=== PATIENT | male | born 1970 | race Caucasian/White ===

== ENCOUNTER 2017-08-17 02:38 | Inpatient (IN) | payer BC ==
[~2017-08-17] VITALS: Ht 177.8 cm; Wt 90.7 kg
[~2017-08-17 02:38] MED LIST: LEVAQUIN500 MG ORAL; METRONIDAZOLE500 MG ORAL; NEXIUM20 MG ORAL; ZOFRAN ODT4 MG ORAL
[2017-08-17] MEDS ORDERED: NKM (02:56)
--- NOTE | 2017-08-17 03:06 | Emergency Room Report ---
History of Present Illness General Chief Complaint: Nausea Source: Patient Present Illness HPI Is a 47-year-old male with no past medical history. He present with chief complaint of 3 and nausea. Onset tonight. Today he had cough congestion and sore throat. He was getting better. He had a fever tonight. Took 2 Advil. Local from severely nauseous. Was sweating. No no vomiting. Similar symptom in the past. Allergies: Coded Allergies: PENICILLINS (Unverified Allergy, Unknown, hives, 02/18/14) Patient History Past Medical History: see triage record, old chart reviewed Past Surgical History: none Pertinent Family History: none Social History: Denies: smoking Immunizations: other Reviewed Nursing Documentation: PMH: Agreed, PSxH: Agreed Nursing Documentation-PMH Past Medical History: No History, Except For Hx Hypertension: Yes Review of Systems Constitutional: Reports: sweats, fever Eye: Denies: eye pain, blurred vision ENT: Reports: throat pain, Denies: ear pain, nose congestion Respiratory: Denies: cough, shortness of breath Cardiovascular: Denies: chest pain, palpitations Gastrointestinal: Reports: nausea, Denies: abdominal pain, diarrhea, vomiting Musculoskeletal: Denies: back pain, joint pain Skin: Denies: rash Neurological: Denies: headache, numbness Endocrine: Denies: increased thirst, increased urine Hematologic/Lymphatic: Denies: easy bruising All Other Systems: negative except mentioned in HPI Physical Exam Vital Signs Date Time Temp Pulse Resp B/P (MAP) Pulse Ox O2 Delivery O2 Flow Rate FiO2 08/17/17 02:53 99.1 104 20 139/104 97 Room Air vitals unremarkable Sp02 EP Interpretation: reviewed, normal General Appearance: well appearing, no apparent distress, alert Head: normocephalic, atraumatic Eyes: bilateral eye PERRL, bilateral eye EOMI ENT: hearing grossly normal, normal pharynx Neck: full range of motion, supple, no meningismus Respiratory: chest non-tender, lungs clear, normal breath sounds Cardiovascular #1: regular rate, rhythm, no murmur Gastrointestinal: normal bowel sounds, non tender, no mass, no organomegaly, no bruit, non-distended Musculoskeletal: back normal, gait/station normal, normal range of motion Psychiatric: mood/affect normal Skin: diaphoresis Medical Decision Making Diagnostic Impression: Primary Impression: Nausea alone Additional Impression: ACS (acute coronary syndrome) ER Course Patient presents with nausea but no vomiting. No abdominal pain. He was diaphoretic when he came in. His troponin is abnormal. Is concerning for anginal equivalent pain. He has no chest pain and no longer nauseous. Because of the abnormal troponin, I gave him aspirin Lovenox here. Will admit for further workup. Laboratory Tests Test 08/17/17 03:25 White Blood Count 7.1 K/UL (4.8-10.8) Red Blood Count 5.26 M/UL (4.70-6.10) Hemoglobin 15.6 G/DL (14.2-18.0) Hematocrit 46.3 % (42.0-52.0) Mean Corpuscular Volume 88 FL (80-99) Mean Corpuscular Hemoglobin 29.6 PG (27.0-31.0) Mean Corpuscular Hemoglobin Concent 33.7 G/DL (32.0-36.0) Red Cell Distribution Width 11.5 % (11.6-14.8) L Platelet Count 255 K/UL (150-450) Mean Platelet Volume 6.3 FL (6.5-10.1) L Neutrophils (%) (Auto) 74.5 % (45.0-75.0) Lymphocytes (%) (Auto) 9.9 % (20.0-45.0) L Monocytes (%) (Auto) 11.3 % (1.0-10.0) H Eosinophils (%) (Auto) 2.8 % (0.0-3.0) Basophils (%) (Auto) 1.5 % (0.0-2.0) Urine Color Pale yellow Urine Appearance Clear Urine pH 6 (4.5-8.0) Urine Specific Callahan 1.020 (1.005-1.035) Urine Protein Negative (NEGATIVE) Urine Glucose (UA) Negative (NEGATIVE) Urine Ketones Negative (NEGATIVE) Urine Occult Blood 1+ (NEGATIVE) H Urine Nitrite Negative (NEGATIVE) Urine Bilirubin Negative (NEGATIVE) Urine Urobilinogen Normal MG/DL (0.0-1.0) Urine Leukocyte Esterase 1+ (NEGATIVE) H Urine RBC 0-2 /HPF (0 - 0) H Urine WBC 0-2 /HPF (0 - 0) Urine Squamous Epithelial Cells None /LPF (NONE/OCC) Urine Bacteria None /HPF (NONE) Sodium Level 138 MMOL/L (136-145) Potassium Level 3.8 MMOL/L (3.5-5.1) Chloride Level 102 MMOL/L (98-107) Carbon Dioxide Level 24 MMOL/L (21-32) Anion Gap 13 mmol/L (5-15) Blood Urea Nitrogen 9 mg/dL (7-18) Creatinine 1.3 MG/DL (0.55-1.30) Estimat Glomerular Filtration Rate 59.4 mL/min (>60) Glucose Level 134 MG/DL (74-106) H Calcium Level 9.0 MG/DL (8.5-10.1) Total Bilirubin 0.2 MG/DL (0.2-1.0) Aspartate Amino Transf (AST/SGOT) 33 U/L (15-37) Alanine Aminotransferase (ALT/SGPT) 65 U/L (12-78) Alkaline Phosphatase 68 U/L (46-116) Troponin I 0.132 ng/mL (0.000-0.056) Total Protein 8.0 G/DL (6.4-8.2) Albumin 3.7 G/DL (3.4-5.0) Globulin 4.3 g/dL Albumin/Globulin Ratio 0.9 (1.0-2.7) L Lipase 138 U/L (73-393) Lab Results Impression labs with abnormal troponin EKG Diagnostic Results Rate: normal Rhythm: NSR ST Segments: no acute changes ASA given to the pt in ED: Yes Rhythm Strip Diag. Results Rhythm Strip Time: 04:09 EP Interpretation: yes Rate: 95 Rhythm: NSR, no PVC's, no ectopy Chest X-Ray Diagnostic Results Chest X-Ray Diagnostic Results : Chest X-Ray Ordered: Yes # of Views/Limited/Complete: 1 View Indication: Other EP Interpretation: Yes Interpretation: no consolidation, no effusion, no pneumothorax, no acute cardiopulmonary disease Impression: No acute disease Electronically Signed by: Galdino Carrera MD Last Vital Signs Date Time Temp Pulse Resp B/P (MAP) Pulse Ox O2 Delivery O2 Flow Rate FiO2 08/17/17 02:53 99.1 104 20 139/104 97 Room Air Status: improved Disposition: ADMITTED INPATIENT Condition: Serious GALDINO CARRERA M.D. Aug 17, 2017 03:06
[2017-08-17 03:27] VITALS: BP 142/74
[2017-08-17 03:27] LABS: BASOPHILS % (AUTO) 1.5 % (0.0-2.0); EOSINOPHILS % (AUTO) 2.8 % (0.0-3.0); HEMATOCRIT 46.3 % (42.0-52.0); HEMOGLOBIN 15.6 G/DL (14.2-18.0); LYMPHOCYTES % (AUTO) 9.9 % (20.0-45.0); MEAN CORPUSCULAR VOLUME 88 FL (80-99); MONOCYTES % (AUTO) 11.3 % (1.0-10.0); NEUTROPHILS % (AUTO) 74.5 % (45.0-75.0); PLATELET COUNT 255 K/UL (150-450); RED BLOOD COUNT 5.26 M/UL (4.70-6.10); RED CELL DISTRIBUTION WIDTH 11.5 % (11.6-14.8); WHITE BLOOD COUNT 7.1 K/UL (4.8-10.8)
[2017-08-17 03:28] LABS: APPEARANCE,URINE CLEAR; BILIRUBIN, URINE NEGATIVE (NEGATIVE); COLOR,URINE PALE YELLOW; GLUCOSE, URINE (UA) NEGATIVE (NEGATIVE); KETONES,URINE NEGATIVE (NEGATIVE); LEUKOCYTE ESTERASE ,URINE 1+ (NEGATIVE); NITRITE,URINE NEGATIVE (NEGATIVE); PH,URINE 6 (4.5-8.0); PROTEIN,URINE NEGATIVE (NEGATIVE); UROBILINOGEN,URINE NORMAL MG/DL (0.0-1.0)
[2017-08-17 03:38] LABS: ANION GAP 13 mmol/L (5-15); BLOOD UREA NITROGEN 9 mg/dL (7-18); CARBON DIOXIDE 24 MMOL/L (21-32); CHLORIDE 102 MMOL/L (98-107); CREATININE 1.3 MG/DL (0.55-1.30); POTASSIUM 3.8 MMOL/L (3.5-5.1); SODIUM 138 MMOL/L (136-145)
[2017-08-17 03:42] LABS: ALANINE AMINOTRANSFERASE 65 U/L (12-78); ALBUMIN 3.7 G/DL (3.4-5.0); ALBUMIN/GLOBULIN RATIO 0.9 (1.0-2.7); ALKALINE PHOSPHATASE 68 U/L (46-116); ASPARTATE AMINO TRANSFERASE 33 U/L (15-37); BILIRUBIN,TOTAL 0.2 MG/DL (0.2-1.0)
[2017-08-17] MEDS ORDERED: Aspirin Baby 81mg ORAL ONE (04:00)
[2017-08-17] MEDS ORDERED: Enoxaparin 80mg Inj SUBQ ONE (04:15)
[2017-08-17 05:06] VITALS: BP 153/94
[2017-08-17 05:32] VITALS: BP 149/115
[2017-08-17] MEDS ORDERED: Nitroglycerin Subl 0.4mg tab SL PRN (06:30)
[2017-08-17 08:00] VITALS: BP 148/78
--- NOTE | 2017-08-17 08:49 | Diagnostic Imaging Report ---
Indication: Chest pain Technique: XRAY Chest 1v Comparison: None Findings: Heart size and mediastinal contours are within normal limits given technique. There is no focal consolidation, pneumothorax or pleural effusion. Osseous structures demonstrate no acute abnormality. Impression: No radiographic evidence of acute cardiopulmonary disease.
[2017-08-17 08:59] LABS: BASOPHILS % (AUTO) 1.1 % (0.0-2.0); EOSINOPHILS % (AUTO) 0.5 % (0.0-3.0); HEMATOCRIT 45.9 % (42.0-52.0); LYMPHOCYTES % (AUTO) 10.8 % (20.0-45.0); MEAN CORPUSCULAR VOLUME 89 FL (80-99); MONOCYTES % (AUTO) 8.9 % (1.0-10.0); NEUTROPHILS % (AUTO) 78.8 % (45.0-75.0); PLATELET COUNT 264 K/UL (150-450); RED BLOOD COUNT 5.14 M/UL (4.70-6.10); RED CELL DISTRIBUTION WIDTH 11.7 % (11.6-14.8); WHITE BLOOD COUNT 6.6 K/UL (4.8-10.8)
[2017-08-17] MEDS ORDERED: Aspirin EC 81mg tab ORAL SCH (09:00)
[2017-08-17] MEDS ORDERED: Metoprolol 25mg tab ORAL SCH (09:00)
[2017-08-17] MEDS ORDERED: Metoprolol Succinate XL 50mg tab ORAL SCH (09:00)
[2017-08-17 09:33] LABS: ALANINE AMINOTRANSFERASE 65 U/L (12-78); ALBUMIN 3.7 G/DL (3.4-5.0); ALBUMIN/GLOBULIN RATIO 0.8 (1.0-2.7); ALKALINE PHOSPHATASE 67 U/L (46-116); AMYLASE 63 U/L (25-115); ANION GAP 10 mmol/L (5-15); ASPARTATE AMINO TRANSFERASE 36 U/L (15-37); BILIRUBIN,TOTAL 0.3 MG/DL (0.2-1.0); BLOOD UREA NITROGEN 7 mg/dL (7-18); CARBON DIOXIDE 24 MMOL/L (21-32); CHLORIDE 105 MMOL/L (98-107); CHOLESTEROL 261 MG/DL (< 200); CKMB 1.8 NG/ML (0.0-3.6); CREATINE KINASE 351 U/L (26-308); CREATININE 1.2 MG/DL (0.55-1.30); HDL CHOLESTEROL 59 MG/DL (40-60); POTASSIUM 3.9 MMOL/L (3.5-5.1); SODIUM 139 MMOL/L (136-145); TRIGLYCERIDES 123 MG/DL (30-150)
[2017-08-17 12:00] VITALS: BP 139/77
[2017-08-17] MEDS ORDERED: LIPITOR40 MG ORAL (14:38)
[2017-08-17] MEDS ORDERED: FAMOTIDINE20 MG ORAL (14:38)
[2017-08-17] MEDS ORDERED: ASPIRIN EC81 MG ORAL (14:38)
--- NOTE | 2017-08-17 18:14 | Cardiology Report ---
APPROVED REPORT EKG Measurement Heart [id number] Normal sinus rhythm Normal ECG
--- NOTE | 2017-08-18 12:30 | Discharge Summary ---
DATE OF ADMISSION: 08/17/2017 DATE OF DISCHARGE: 08/17/2017 PERTINENT HISTORY: See the dictated History and Physical. The patient is a 47-year-old man came with nausea and vomiting, which apparently abated shortly after arrival. He also had a borderline troponin. PHYSICAL EXAMINATION: Unremarkable. COURSE IN THE HOSPITAL: The patient had two troponins that were likely false positives and no symptoms of chest pain and normal EKG. The patient felt improved and wished to go home. He had an elevated cholesterol of 261. FINAL DIAGNOSES: 1. Nausea and vomiting, likely secondary to gastritis. 2. Borderline troponin with no history of coronary artery disease. 3. Hypercholesterolemia. DISCHARGE DISPOSITION: He was discharged on a low-fat diet, aspirin 81 mg daily, Zantac 150 b.i.d., and Lipitor 40 mg at bedtime. He will have a stress test arranged as an outpatient. FOLLOWUP: Follow up in the office of Dr. Briscoe. Salvatore Briscoe M.D. DR: ARISTEO JOB#: [id number] CC:
--- NOTE | 2017-08-18 17:15 | History and Physical Report ---
DATE OF ADMISSION: 08/17/2017 CHIEF COMPLAINT/REASON FOR HOSPITALIZATION: The patient is admitted with nausea, vomiting, and questionable abnormal troponin. HISTORY OF PRESENT ILLNESS: The patient is a 47-year-old male, who is generally in good health. He has every one to two years episodes of severe nausea and he had an episode last night awakening him from sleep with dry heaves and nausea that abated and apparently shortly after arrival to the emergency room there is a questionable fever. He took two Advil at home. He was diaphoretic and troponin was drawn, which was borderline in the emergency room of 0.132 and repeat 0.124 and the patient has had no history of heart disease and denies any chest pressure or shortness of breath. He says he gets episodic severe nausea as above. ALLERGIES: Penicillin. SURGERIES: Benign skin lesion. HABITS: He is nonsmoker and nondrinker. No use of illicit drugs. 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 SYSTEM REVIEW: HEAD, EYES, EARS, NOSE, AND THROAT: Vision and hearing are good. ENDOCRINE: No known diabetes or thyroid disease. PULMONARY: No asthma, TB, or chronic cough. CARDIAC: See history of present illness. GASTROINTESTINAL: See history of present illness. No known history of ulcer or GI bleeding. GENITOURINARY: No dysuria, hematuria, or kidney stones. NEUROLOGIC: No CVA, syncope or seizures. He has had some recent weight gain. PHYSICAL EXAMINATION: GENERAL: The patient is alert man, in no acute distress. Weight 90.7. BMI is 28.7. VITAL SIGNS: Temperature is 98.6 degrees, pulse 72, respirations 18, and blood pressure 139/77. HEAD, EYES, EARS, NOSE, THROAT: Sclerae are nonicteric. Ocular motions intact in all directions. Oral mucosa moist. NECK: No adenopathy or thyroid enlargement. LUNGS: Clear. HEART: Regular rhythm. No murmur. ABDOMEN: Soft. No organomegaly or tenderness. GENITOURINARY: Penis and testes normal. RECTAL: Deferred. EXTREMITIES: No edema, cyanosis or clubbing. NEUROLOGIC: He is alert and oriented. Cranial nerves are intact. LABORATORY AND DIAGNOSTIC DATA: Review of pertinent labs show normal electrolytes, glucose 134, and 114. Troponins as above. Total CK 351. Cholesterol 261. Total LDL 182. IMPRESSION: 1. Nausea and vomiting, etiology unclear, possibly dietary-related possibly due to gastritis, gastroesophageal reflux. 2. Elevated troponin, nonspecific. 3. His CK total is elevated and this may be a false elevation. He has no symptoms of coronary artery disease and he has a normal EKG. PLAN: The patient is stable for discharge. See discharge note. Salvatore Briscoe M.D. DR: Fabiana JOB#: [id number] CC:
--- NOTE | 2017-08-18 17:47 | Cardiology Report ---
APPROVED REPORT EKG Measurement Heart [id number] Normal sinus rhythm Normal ECG
== END 2017-08-17 16:10 | disposition home or self-care (01) | DRG 392 ==
LOC: EMR 03:18 → 2E 04:17 → EDBEDREQ 04:41 → 2E 05:16
DX: K29.70 Gastritis, unspecified, without bleeding (principal); K21.9 Gastro-esophageal reflux disease without esophagitis; R11.2 Nausea with vomiting, unspecified; R74.8 Abnormal levels of other serum enzymes; E78.00 Pure hypercholesterolemia, unspecified
CPT/HCPCS: 36415; 71045; 80053; 80061; 81003; 82150; 82550; 82553; 83690; 84484; 85025; 93005; 99285; J2405